=== PATIENT | male | born 1990 | race Caucasian/White ===

== ENCOUNTER 2016-12-15 22:22 | Emergency (ER) | payer SELFPAY ==
[~2016-12-15] VITALS: Ht 160 cm; Wt 59.1 kg
[2016-12-15 22:24] VITALS: TEMP 98.1
[2016-12-15 23:32] LABS: BASO % 0.4 % (0.0-2.0); EOS # 0.2 (0.0-0.7); EOS % 1.9 % (0-4.0); GRAN # 4.7 (1.4-6.5); GRAN % 56.4 % (42.2-75.2); LYMPH # 2.9 (1.2-3.4); LYMPH % 34.8 % (20.0-51.0); MEAN CELL VOLUME 86 fl (80.0-100.0); MEAN CORPUSCULAR HGB CONC 34 g/dl (33.0-37.0); MEAN PLATELET VOLUME 9.2 fl (7.4-10.4); MONO # 0.5 (0.1-0.6); MONO % 6.1 % (1.7-9.3); PLATELET COUNT 286 K/mm3 (130-400); RED BLOOD COUNT 4.09 M/mm3 (4.20-5.60); REDCELL DISTRIBUTION WIDTH-CV 12.6 % (11.5-14.5); WHITE BLOOD COUNT 8.4 K/mm3 (4.8-10.8)
[2016-12-15 23:47] LABS: HEMATOCRIT 35.3 % (42.0-52.0); HEMOGLOBIN 11.9 g/dl (13.5-18.0); MEAN CORPUSCULAR HEMOGLOBIN 29 pg (27.0-31.0)
[2016-12-16 00:01] LABS: ADJUSTED CALCIUM 8.8 mg/dL (8.4-10.2); BILIRUBIN,TOTAL 1.1 mg/dL (0.0-1.0); C-REACTIVE PROTEIN 1.2 mg/dL (0.0-0.9); CALCIUM 8.8 mg/dL (8.4-10.2); CREATININE, serum 0.78 mg/dL (0.66-1.25); POTASSIUM 3.7 mmol/L (3.4-5.0); TOTAL PROTEIN 7.1 gm/dL (6.4-8.2)
[2016-12-16 00:28] LABS: PH 5 (5-8); SQUAMOUS EPITHELIAL None Seen /hpf; URINE APPEARANCE Clear; URINE BACTERIA None Seen /hpf; URINE BILIRUBIN Negative (NEGATIVE); URINE BLOOD Negative (NEGATIVE); URINE COLOR Yellow; URINE GLUCOSE Negative (NEGATIVE); URINE KETONE 1+ (NEGATIVE); URINE RBC 0-2 /hpf; URINE UROBILINOGEN Negative (NEGATIVE); URINE WBC 0-2 /hpf
[2016-12-16] MEDS ORDERED: CIPRO 500MG TA500 MG PO (01:22)
[2016-12-16] MEDS ORDERED: NORCO 325 MG-51 TAB PO (01:22)
[2016-12-16 01:46] VITALS: BP 137/84; PULSE 87
[2016-12-16 02:02] LABS: CHLAMYDIA/TRACH by PCR Male NOT DETECTED; Neisseria Gon by PCR Male NOT DETECTED
== END 2016-12-16 01:46 | disposition home or self-care (01) ==
LOC: COL.ER 22:22
PROVIDERS: Emergency Medicine
DX: R10.31 Right lower quadrant pain (principal); R30.0 Dysuria; L29.9 Pruritus, unspecified; T50.8X5A Adverse effect of diagnostic agents, initial encounter
CPT/HCPCS: J1170; J1200; J2060; J2405; J7030; Q9967